=== PATIENT | female | born 1980 | race Caucasian/White ===

== ENCOUNTER → 2018-02-10 | Outpatient (CLI) | payer OTHER ==
[2018-02-10 13:10] LABS: BASO # 0.1 10^3/uL (0.0-0.2); BASO % 0.4 % (0.0-1.0); EOS # 0.1 10^3/uL (0.0-0.50); HEMATOCRIT 37.9 % (36.0-47.0); HEMOGLOBIN 12.9 g/dl (12.0-15.5); IMMATURE GRANULOCYTE % 0.7 % (0-3.0); LYMPH # 2.7 10^3/uL (1.5-4.5); LYMPH % 21.9 % (24.0-44.0); MEAN CORPUSCULAR HEMOGLOBIN 32.2 pg (27.0-33.0); MEAN CORPUSCULAR VOLUME 94.5 fl (80.0-96.0); MONO # 0.9 10^3/uL (0.0-0.8); MONO % 7.1 % (0.0-5.0); NEUTROPHILS # 8.5 10^3/uL (1.8-7.7); NEUTROPHILS % 68.9 % (36.0-66.0); PLATELET COUNT, AUTOMATED 296 10^3/uL (150-450); RED BLOOD COUNT 4.01 10^6/uL (4.00-5.40); RED CELL DISTRIBUTION WIDTH 12.4 % (11.5-14.5); WHITE BLOOD COUNT 12.3 10^3/uL (4.0-10.0)
[2018-02-10 17:45] LABS: CHLAMYDIA DNA AMPLIFICATION NEGATIVE (NEGATIVE); GC DNA AMPLIFICATION NEGATIVE (NEGATIVE)
[2018-02-11 09:03] LABS: RUBELLA IgG QUALITATIVE IMMUNE (IMMUNE)
[2018-02-11 09:14] LABS: HBsAg Prenatal NEGATIVE (NEGATIVE)
[2018-02-11 09:33] LABS: HIV 1&2 SCREEN CENTAUR NEGATIVE (NEGATIVE)
[2018-02-11 09:33] LABS: HEPATITIS C VIRUS ABY INDEX 0.1 INDEX (<0.8)
== END ==
LOC: M SMT 09:22
DX: Z34.81 Encounter for supervision of other normal pregnancy, first trimester (principal); Z3A.08 8 weeks gestation of pregnancy

== ENCOUNTER → 2018-03-10 | Outpatient (CLI) | payer OTHER | LOC: M SMT 10:11 | DX: O09.529 Supervision of elderly multigravida, unspecified trimester (principal); Z3A.00 Weeks of gestation of pregnancy not specified | CPT/HCPCS: 36415 ==

== ENCOUNTER → 2018-06-18 | Outpatient (CLI) | payer OTHER ==
[2018-06-18 14:48] LABS: HEMATOCRIT 35.3 % (36.0-47.0); HEMOGLOBIN 11.8 g/dl (12.0-15.5); MEAN CORPUSCULAR HEMOGLOBIN 32.5 pg (27.0-33.0); MEAN CORPUSCULAR HGB CONC 33.4 g/dl (32.0-36.5); MEAN CORPUSCULAR VOLUME 97.2 fl (80.0-96.0); PLATELET COUNT, AUTOMATED 253 10^3/uL (150-450); RED BLOOD COUNT 3.63 10^6/uL (4.00-5.40); WHITE BLOOD COUNT 16.5 10^3/uL (4.0-10.0)
== END ==
LOC: M LAB 13:25
PROVIDERS: ATTEND Obstetrics & Gynecology
DX: Z34.82 Encounter for supervision of other normal pregnancy, second trimester (principal); Z36.89 Encounter for other specified antenatal screening

== ENCOUNTER → 2018-08-19 | Outpatient (REF) | payer OTHER | LOC: M LAB REF 12:17 | PROVIDERS: ATTEND Obstetrics & Gynecology | DX: Z34.83 Encounter for supervision of other normal pregnancy, third trimester (principal); Z3A.00 Weeks of gestation of pregnancy not specified ==

== ENCOUNTER 2018-09-09 17:22 | Inpatient (IN) | payer OTHER ==
[2018-09-09] VITALS (16 sets, daily range): BP systolic 82–136; BP diastolic 52–93
[~2018-09-09] VITALS: Ht 180.3 cm; Wt 87.4 kg
[2018-09-09] MEDS ORDERED: MIRA3350 PO (18:01)
[2018-09-09] MEDS ORDERED: PROBCAP14 PO (18:01)
[2018-09-09] MEDS ORDERED: PRENTAB9 PO (18:01)
[2018-09-09] MEDS ORDERED: K-TA10TA2 PO (18:01)
[2018-09-09] MEDS ORDERED: GLYB5TA PO (18:01)
[2018-09-09] MEDS ORDERED: ZYRTTAB8 PO (18:01)
[2018-09-09] MEDS ORDERED: LACTATED RINGER'S 1000 ML IV STA (18:09)
[2018-09-09] MEDS ORDERED: AMPICILLIN SOD 2 GM in APPROPRIATE DILUENT 20 ML IV STA (18:09)
[2018-09-09] MEDS ORDERED: AMPICILLIN SOD 2 GM in D5W MINI-BAG PLUS 100 ML IV STA (18:29)
[2018-09-09 19:24] LABS: HEMOGLOBIN 12.5 g/dl (12.0-15.5); MEAN CORPUSCULAR HEMOGLOBIN 33.1 pg (27.0-33.0); MEAN CORPUSCULAR HGB CONC 34.7 g/dl (32.0-36.5); MEAN CORPUSCULAR VOLUME 95.2 fl (80.0-96.0); PLATELET COUNT, AUTOMATED 304 10^3/uL (150-450); RED BLOOD COUNT 3.78 10^6/uL (4.00-5.40); WHITE BLOOD COUNT 17.4 10^3/uL (4.0-10.0)
[2018-09-09 19:41] LABS: BLOOD UREA NITROGEN 16 MG/DL (7-18); CALCIUM LEVEL 8.6 MG/DL (8.5-10.1); CARBON DIOXIDE LEVEL 22 MEQ/L (21-32); CHLORIDE LEVEL 105 MEQ/L (98-107); CREATININE FOR GFR 0.61 MG/DL (0.55-1.30); GLOMERULAR FILTRATION RATE > 60.0 (>60); GLUCOSE, FASTING 74 MG/DL (70-100); POTASSIUM SERUM 4.1 MEQ/L (3.5-5.1); SODIUM LEVEL 136 MEQ/L (136-145)
[2018-09-09] MEDS ORDERED: AMPICILLIN SOD 1 GM in APPROPRIATE DILUENT 10 ML IV SCH (22:15)
[2018-09-09] MEDS ORDERED: FENTANYL 2MCG/ML ROPIVACAINE 0.2% IN 0.9% NACL 100ML IVBAG As Ordered ONE (22:18)
[2018-09-09] MEDS ORDERED: NALOXONE INJ 0.4 MG/1 ML VIAL (J2310) IV PRN (23:07)
[2018-09-09] MEDS ORDERED: REFRIGERATOR IV KEYS XX PRN (23:07)
[2018-09-09] MEDS ORDERED: EPIDURAL/PCA KEYS XX PRN (23:07)
[2018-09-09] MEDS ORDERED: diphenhydrAMINE INJ 50MG/ML VIAL (J1200) IV PRN (23:07)
[2018-09-09] MEDS ORDERED: EPIDURAL COMMENT XX SCH (23:07)
[2018-09-09] MEDS ORDERED: ONDANSETRON 4MG/2ML VIAL (J2405) IV PRN (23:07)
[2018-09-09] MEDS ORDERED: ePHEDrine SULFATE 25 MG/5 ML(5MG/ML) SYRINGE IV PRN (23:07)
[2018-09-09] MEDS ORDERED: FENTANYL/ROPIVACAINE/NACL BAG 100 ML EPIDURAL SCH (23:07)
[2018-09-09] MEDS: LR 1,000 ML IV SCH (23:51)
[2018-09-09] MEDS: AMPICILLIN SOD 1 GM in D5W MINI-BAG PLUS 50 ML IV SCH (23:51)
[2018-09-10] VITALS (29 sets, daily range): BP systolic 84–122; BP diastolic 46–67
[2018-09-10] MEDS ORDERED: OXYTOCIN 30 UNITS IN 0.9% NaCl 500ML IV BAG (J2590) As Ordered ONE (01:37)
[2018-09-10] MEDS ORDERED: OXYTOCIN DRIP 30 UNITS in APPROPRIATE DILUENT 1 EA IV SCH ×2 (01:45→06:54)
[2018-09-10] MEDS: AMPICILLIN SOD 1 GM in D5W MINI-BAG PLUS 50 ML IV SCH (04:47)
[2018-09-10] MEDS: LR 1,000 ML IV SCH (05:03)
[2018-09-10 05:46] LABS: CORD GAS ABE A -0.8; CORD GAS ABE V -0.5; CORD GAS HCO3 A 27.5 MEQ/L; CORD GAS HCO3 V 25.5 MEQ/L; CORD GAS O2 SAT A 26.3 %; CORD GAS O2 SAT V 60.2 %; CORD GAS PCO2 A 61.2 mmHg; CORD GAS PCO2 V 47.1 mmHg; CORD GAS PH A 7.271 UNITS; CORD GAS PH V 7.352 UNITS; CORD GAS PO2 A 15.7 mmHg; CORD GAS PO2 V 22.1 mmHg; CORD GAS SBC V 23.1 MEQ/L; CORD GAS TCO2 A 29.4 MEQ/L
[2018-09-10] MEDS ORDERED: MEASLES,MUMPS,RUBELLA VACCINE INJ (MMR-II) (90707) SC SCH (07:00)
[2018-09-10] MEDS ORDERED: DOCUSATE SODIUM 100 MG CAP PO PRN (07:00)
[2018-09-10] MEDS ORDERED: DIBUCAINE 1% OINTMENT 30GM TOP PRN (07:00)
[2018-09-10] MEDS ORDERED: RHOGAM 300 MCG (1500 IU) INJ (J2790) IM SCH (07:00)
[2018-09-10] MEDS ORDERED: METHYLERGONOVINE MALEATE 0.2 MG TAB PO PRN (07:00)
[2018-09-10] MEDS: PRENATAL VITAMINS CHEWABLE TABLET PO SCH (09:00)
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
[2018-09-10] MEDS ORDERED: INFLUENZA QUADRIVALENT PF VACCINE 0.5ML SYRINGE (90686) IM ONE (09:45)
[2018-09-10] MEDS ORDERED: ADACEL/BOOSTRIX VACCINE (DIPHTH/PERTUSS/ACELL/TETANUS)0.5ML SYR (90715) IM ONE (09:45)
[2018-09-10] MEDS: ACETAMINOPHEN 500 MG TAB PO PRN ×2 (10:46→18:35)
--- NOTE | 2018-09-10 14:45 | DN ---
DATE OF DELIVERY: 09/10/2018 DELIVERY NOTE: Dominique is a 38-year-old female, 3, para 2-0-0-2, gestational diabetic, who is admitted at 38-6/7 weeks of gestation with severe oligohydramnios and a nonreactive heart rate tracing. She underwent spontaneous rupture of membrane, followed by Pitocin augmentation. She then became fully dilated, pushed and delivered a live female infant in left occiput anterior position. 9 and 9. weight 7 pounds 13 ounces. Placenta delivered spontaneously intact. Three-vessel cord. First-degree midline perineal laceration noted, which was repaired using #2-0 chromic. Estimated blood loss 250 mL. Both mother and baby in stable condition. [facility]
[2018-09-10] MEDS: IBUPROFEN 800 MG TAB PO PRN (14:47)
[2018-09-11 06:02] VITALS: BP 89/53
[2018-09-11 06:15] VITALS: BP 101/60
[2018-09-11] MEDS: IBUPROFEN 800 MG TAB PO PRN (06:40)
[2018-09-11] MEDS: PRENATAL VITAMINS CHEWABLE TABLET PO SCH (08:18)
[2018-09-11] MEDS ORDERED: IBUP-1114 PO (13:34)
[2018-09-11] MEDS ORDERED: MAPA500T2 PO (13:34)
[2018-09-11] MEDS ORDERED: INFLUENZA QUADRIVALENT PF VACCINE 0.5ML SYRINGE (90686) IM ONE (14:00)
[2018-09-11] MEDS ORDERED: ADACEL/BOOSTRIX VACCINE (DIPHTH/PERTUSS/ACELL/TETANUS)0.5ML SYR (90715) IM ONE (14:00)
== END 2018-09-11 14:40 | disposition home or self-care (01) | DRG 807 ==
LOC: M LDO 17:22 → M LDI 18:28 → M OBS 09-10 09:09
PROVIDERS: ADMIT Obstetrics & Gynecology; ATTEND Obstetrics & Gynecology
PROC: 3E033VJ Introduction of Other Hormone into Peripheral Vein, Percutaneous Approach (ICD-10-PCS; 2018-09-09)
PROC: 10E0XZZ Delivery of Products of Conception, External Approach (ICD-10-PCS; principal; 2018-09-10)
PROC: 0HQ9XZZ Repair Perineum Skin, External Approach (ICD-10-PCS; 2018-09-10)
DX: O24.425 Gestational diabetes mellitus in childbirth, controlled by oral hypoglycemic drugs (principal); Z37.0 Single live birth; Z3A.38 38 weeks gestation of pregnancy; Z62.810 Personal history of physical and sexual abuse in childhood; O42.02 Full-term premature rupture of membranes, onset of labor within 24 hours of rupture; O70.1 Second degree perineal laceration during delivery; O09.523 Supervision of elderly multigravida, third trimester